=== PATIENT | female | born 1960 | race Two or more races ===

== ENCOUNTER 2021-05-23 14:40 | Outpatient (CLI) | payer OTHER | END 2021-05-23 23:59 | disposition home or self-care (01) | LOC: LAB 14:40 | PROVIDERS: ATTEND Specialist | DX: Z01.812 Encounter for preprocedural laboratory examination (principal); Z20.822 Contact with and (suspected) exposure to COVID-19 | CPT/HCPCS: C9803; U0003 ==

== ENCOUNTER 2021-05-28 05:04 | Day surgery (SDC) | payer OTHER ==
[~2021-05-28] VITALS: Ht 152.4 cm; Wt 64.0 kg
[~2021-05-28 05:04] MED LIST: ANESTHESIA TRAY IN PYXIS 1 EA TRAY MC ONE; EPINEPHRINE (1:1000) 1 MG/ML AMPUL ONE; LIDOCAINE HCL/MPF 1% 30 ML VIAL IJ ONE; methylPREDNISolone ACETATE 80 MG/ML VIAL ONE
[2021-05-28 05:53] VITALS: BP 139/63
--- NOTE | 2021-05-28 06:00 | NUR ---
ADMITTED FOR DAY SURGERY RIGHT SHOULDER SURGERY BY MD WICK ALERT AND ORIENTATEDX4 CONSENTS BLOOD AND SURGERY SIGNED MRSA SWAB DONE SENT TO THE LAB LEFT HAND 2O G S/L PLACED BELONGINGS PLACED IN THE BESIDE STAND NPO SINE 05/27/2021 AT 1800 LAST VOIDED 05/28/2021 0615
[2021-05-28] MEDS ORDERED: ROCURONIUM BROMIDE 50 MG/5 ML ONE (06:34)
[2021-05-28] MEDS ORDERED: HYDROMORPHONE INJ 2 MG/ML DISP.SYRIN ONE (06:34)
[2021-05-28] MEDS ORDERED: FENTANYL PF 100MCG/2ML AMPUL ONE (06:34)
--- NOTE | 2021-05-28 07:00 | NUR ---
RN NOTES PATIENT PICKED UP FOR SURGERY VIA GURNEY, ACCOMPANIED BY 2 ER NURSES.
[2021-05-28] MEDS ORDERED: BUPIVACAINE 0.5 % PF 150 MG/30 ML VIAL ONE (07:42)
[2021-05-28] MEDS ORDERED: LABETALOL HCL IV 100MG VIAL ONE (07:52)
--- NOTE | 2021-05-28 09:17 | NUR ---
RN NOTES PATIENT RETURNED FROM SURGERY VIA GURNEY, ACCOMPANIED BY 2 OR NURSES. NOTED W/ SLING ON RIGHT SHOULDER AND ICE PACK; NO COMPLAINT OF PAIN AT THIS TIME.
--- NOTE | 2021-05-28 09:30 | NUR ---
RN NOTES ORDERS NOTED FROM DR. REYES.
--- NOTE | 2021-05-28 10:56 | NUR ---
RN NOTES FAMILY AT BEDSIDE TO SEE PATIENT; INFORMED ABOUT SURGERY AND PATIENT'S CONDITION.
[2021-05-28] MEDS ORDERED: ONDANSETRON HCL/PF 4 MG/2 ML VIAL IV PRN (11:30)
[2021-05-28] MEDS ORDERED: HYDROCODONE/APAP 5/325MG TABLET PO PRN (12:00)
--- NOTE | 2021-05-28 14:00 | NUR ---
RN NOTES PATIENT DISCHARGED TO HOME TODAY AFTER RIGHT SHOULDER ARTHROSCOPY. DISCHARGE INSTRUCTION AND EDUCATION PROVIDED TO PATIENT; VERBALIZED UNDERSTANDING OF SURGICAL AFTERCARE AND POST-DISCHARGE APPOINTMENT W/ ORTHO. PATIENT VERBALIZED THAT SHE'S OKAY NOT HAVING THE [facility] BECAUSE SHE HAS PAIN MEDICATION TO TAKE AT HOME. DRESSING ON RIGHT SHOULDER C/D/I AND W/ SHOULDER SLING IN PLACE. NAME ARMBAND AND IV LINES REMOVED, NO BLEEDING NOTED. NO SKIN ISSUES NOTED. PATIENT ABLE TO PASS GAS AND URINATE; DRANK WATER BUT DID NOT WANT TO EAT AT THIS TIME. PATIENT IS AMBULATORY BUT REQUESTED TO BE WHEELED DOWN THE LOBBY VIA WHEELCHAIR, ACCOMPANIED BY 1 TILE LAYER AND FAMILY MEMBER. PICKED UP VIA PRIVATE CAR. CHARGE NURSE AND MD AWARE OF DISCHARGE.
== END 2021-05-28 18:00 | disposition home or self-care (01) ==
LOC: DS 05:04 → MED 05:05 → UNDOADMIN 05:05 → UNDODISIN 14:15 → DS 18:00
PROVIDERS: ATTEND Specialist
DX: M75.41 Impingement syndrome of right shoulder (principal); E11.9 Type 2 diabetes mellitus without complications; Z20.822 Contact with and (suspected) exposure to COVID-19
CPT/HCPCS: 29826; 29828; 82962; 87081; A4217; A4565; J0171; J0330; J0360; J0690; J1040; J1100; J1170; J1885; J2405 ×2; J2704; J3010; J3490 ×4; J7030; G0378